=== PATIENT | male | born 1975 | race Caucasian/White ===

== ENCOUNTER 2017-01-07 19:47 | Emergency (ER) | payer SELFPAY ==
[2017-01-07 19:58] VITALS: BP 113/74; PULSE 61; RESP 20; TEMP 98.2; O2SAT 97
--- NOTE | 2017-01-07 21:11 | C.PDOC ---
History Of Present Illness Patient is a 41 year old male who presents to the ER with a complaint of lower back pain that radiates to the left thigh and left buttock for the past 2 days that has progressively gotten worse. Patient states he was bouncing a ball, shifted the wrong way, and felt a sharp pull. Patient states he feels pain with movement and ambulation. Denies urinary symptoms or incontinence. Time Seen by Provider: 01/07/17 20:04 Chief Complaint (Nursing): Back Pain History Per: Patient History/Exam Limitations: no limitations Onset/Duration Of Symptoms: Days (2) Current Symptoms Are (Timing): Still Present Quality Of Discomfort: Sharp Previous Symptoms: Back Pain (Lower) Associated Symptoms: denies: Incontinence, Other (Urinary symptoms) Past Medical History Reviewed: Historical Data, Nursing Documentation, Vital Signs Vital Signs: Last Vital Signs Temp 98.2 F 01/07/17 19:54 Pulse 61 01/07/17 19:54 Resp 20 01/07/17 19:54 BP 113/74 01/07/17 19:54 Pulse Ox 97 01/07/17 21:38 - Medical History PMH: No Chronic Diseases Surgical History: No Surg Hx Family History: States: Unknown Family Hx - Social History Hx Alcohol Use: Yes Hx Substance Use: No - Immunization History Hx Tetanus Toxoid Vaccination: Yes Hx Influenza Vaccination: No Hx Pneumococcal Vaccination: Yes Review Of Systems Genitourinary: Negative for: Dysuria, Incontinence, Hematuria Musculoskeletal: Positive for: Back Pain (Lower), Leg Pain (Left thigh) Physical Exam - Physical Exam Appears: Well, Non-toxic Skin: Normal Color, Warm, Dry Head: Atraumatic, Normacephalic Oral Mucosa: Moist Back: No CVA Tenderness, No Vertebral Tenderness, Muscle Spasm (left), No Paraspinal Tenderness, Straight Leg Raising (positve at 45 degrees Lt) Extremity: Normal ROM, No Swelling Extremity: Bilateral: Atraumatic Neurological/Psych: Oriented x3, Normal Speech, Normal Cognition, Normal Motor, Normal Sensation Gait: Steady ED Course And Treatment O2 Sat by Pulse Oximetry: 97 (Room air) Pulse Ox Interpretation: Normal - Other Rad Lumbar spine x-ray X-Ray: Viewed By Me Interpretation: No acute abnormalities Progress Note: Toradol IM and valium PO administered. Lumbar spine x-ray ordered , results were negative. Reassessment Condition: Improved (pt is ambulatory at d/c) Disposition Counseled Patient/Family Regarding: Diagnosis, Need For Followup, Rx Given - Disposition Referrals: [facility] [Outside] Disposition: HOME/ ROUTINE Disposition Time: 21:09 Condition: STABLE Additional Instructions: Please follow up with PMD or in clinic Take meds as prescribed Return to ER if worse Prescriptions: Ibuprofen [Motrin Tab] 800 mg PO QID #30 tab diaZEpam [Valium] 5 mg PO TID #14 tab Instructions: Acute Low Back Pain (ED) Forms: Work Excuse - Clinical Impression Clinical Impression: Low back strain - Scribe Statement The provider has reviewed the documentation as recorded by the Scribe Niles Ortega All medical record entries made by the Scribe were at my direction and personally dictated by me. I have reviewed the chart and agree that the record accurately reflects my personal performance of the history, physical exam, medical decision making, and the department course for this patient. I have also personally directed, reviewed, and agree with the discharge instructions and disposition.
--- NOTE | 2017-01-08 07:43 | RAD ---
PROCEDURE: Radiographs of the Lumbar Spine. HISTORY: pain, midline tenderness COMPARISON: None available. FINDINGS: BONES: Alignment appears satisfactory. No listhesis. No acute displaced fracture identified. Tiny anterior osteophyte formation. DISC SPACES: Unremarkable. OTHER FINDINGS: None. IMPRESSION: No acute displaced fracture or subluxation identified.
== END 2017-01-07 21:24 | disposition home or self-care (01) ==
LOC: C.ER 19:47
DX: S39.012A Strain of muscle, fascia and tendon of lower back, initial encounter (principal); X50.9XXA Other and unspecified overexertion or strenuous movements or postures, initial encounter; Y93.89 Activity, other specified; Y92.9 Unspecified place or not applicable
CPT/HCPCS: 72100; 96372; 99283; J1885